=== PATIENT | female | born 1950 | race Caucasian/White ===

== ENCOUNTER → 2016-12-19 | Outpatient (REF) | payer MEDICARE, OTHER ==
[~2016-12-19] MED LIST: /ESCI10TA OR; AMBI10TA OR; ASPI81TA83 OR; ASTELIN; CA ZINC PO; CARV6.25 OR; LACOSAMIDE PO; NORV5TAB OR; PLAV75TA2 OR; RESTASIS OU; THERGRAN PO; VITAMIN D PO; ZANT150T OR; ZOCO40TA OR; [UNRECOGNIZED DRUG - OTHER] PV
[2016-12-19 13:49] LABS: BASO % 0.6 % (0.0-1.0); EOS # 0.1 K/mm3 (0.0-0.50); EOS % 1.1 % (0.0-3.0); LARGE UNSTAINED CELL # 0.2 K/mm3 (0.0-0.4); LARGE UNSTAINED CELL % 2.2 % (0.0-4.0); LYMPH # 2.3 K/mm3 (1.5-4.5); LYMPH % 31.1 % (24.0-44.0); MEAN CORPUSCULAR HEMOGLOBIN 33.5 pg (27.0-33.0); MEAN CORPUSCULAR HGB CONC 33.1 g/dl (32.0-36.5); MEAN CORPUSCULAR VOLUME 101.4 fl (80.0-96.0); MONO # 0.4 K/mm3 (0.0-0.8); MONO % 6.3 % (0.0-5.0); NEUTROPHILS % 58.7 % (36.0-66.0); PLATELET COUNT, AUTOMATED 225 k/mm3 (150-450); WHITE BLOOD COUNT 6.9 K/mm3 (4.0-10.0)
[2016-12-19 14:11] LABS: ALBUMIN 3.6 GM/DL (3.2-5.2); ALBUMIN/GLOBULIN RATIO 1.16 (1.00-1.93); ALKALINE PHOSPHATASE 87 U/L (45-117); ALT/SGPT 20 U/L (12-78); ANION GAP 9 MEQ/L (8-16); AST/SGOT 16 U/L (15-37); BILIRUBIN,TOTAL 0.3 MG/DL (0.2-1.0); BLOOD UREA NITROGEN 17 MG/DL (7-18); CALCIUM LEVEL 9.1 MG/DL (8.8-10.2); CARBON DIOXIDE LEVEL 30 MEQ/L (21-32); CHLORIDE LEVEL 103 MEQ/L (98-107); CREATININE FOR GFR 0.73 MG/DL (0.55-1.02); GLOMERULAR FILTRATION RATE > 60.0 (>45); GLUCOSE, FASTING 74 MG/DL (80-110); POTASSIUM SERUM 3.9 MEQ/L (3.5-5.1); SODIUM LEVEL 142 MEQ/L (136-145); TOTAL PROTEIN 6.7 GM/DL (6.4-8.2)
== END ==
LOC: M LABNEURO 13:19
PROVIDERS: ATTEND Psychiatry & Neurology Neurology
DX: F01.50 Vascular dementia, unspecified severity, without behavioral disturbance, psychotic disturbance, mood disturbance, and anxiety (principal); G40.209 Localization-related (focal) (partial) symptomatic epilepsy and epileptic syndromes with complex partial seizures, not intractable, without status epilepticus

== ENCOUNTER 2017-01-09 13:32 | Emergency (ER) | payer MEDICARE, OTHER ==
[~2017-01-09] VITALS: Ht 157.5 cm; Wt 59.0 kg
[2017-01-09] MEDS ORDERED: TYLE325C PO (13:45)
[2017-01-09] MEDS ORDERED: ATOR1TAB21 PO (13:45)
[2017-01-09] MEDS ORDERED: FISH100049 PO (13:45)
[2017-01-09] MEDS ORDERED: COUM1TAB17 PO (13:45)
[2017-01-09] MEDS ORDERED: RETA0.5E OU (13:45)
[2017-01-09] MEDS ORDERED: BIOT50004 PO (13:45)
[2017-01-09] MEDS ORDERED: NAME5TAB13 PO (13:45)
[2017-01-09] MEDS ORDERED: CALC600T21 PO (13:45)
[2017-01-09] MEDS ORDERED: LAMO100T PO (13:45)
[2017-01-09 15:29] LABS: BASO % 0.4 % (0.0-1.0); EOS # 0.1 K/mm3 (0.0-0.50); EOS % 1.1 % (0.0-3.0); LARGE UNSTAINED CELL # 0.1 K/mm3 (0.0-0.4); LARGE UNSTAINED CELL % 1.7 % (0.0-4.0); LYMPH # 1.9 K/mm3 (1.5-4.5); LYMPH % 22.9 % (24.0-44.0); MEAN CORPUSCULAR HEMOGLOBIN 34.2 pg (27.0-33.0); MEAN CORPUSCULAR VOLUME 100.5 fl (80.0-96.0); MONO # 0.7 K/mm3 (0.0-0.8); MONO % 8.9 % (0.0-5.0); NEUTROPHILS # 5.1 K/mm3 (1.8-7.7); NEUTROPHILS % 65.1 % (36.0-66.0); PLATELET COUNT, AUTOMATED 194 k/mm3 (150-450); RED CELL DISTRIBUTION WIDTH 12.7 % (11.5-14.5); WHITE BLOOD COUNT 7.8 K/mm3 (4.0-10.0)
[2017-01-09 15:40] LABS: INR 2.18
[2017-01-09 15:52] LABS: ANION GAP 7 MEQ/L (8-16); BLOOD UREA NITROGEN 20 MG/DL (7-18); CARBON DIOXIDE LEVEL 31 MEQ/L (21-32); CHLORIDE LEVEL 101 MEQ/L (98-107); CREATININE FOR GFR 0.72 MG/DL (0.55-1.02); GLOMERULAR FILTRATION RATE > 60.0 (>45); GLUCOSE, FASTING 108 MG/DL (80-110); POTASSIUM SERUM 3.4 MEQ/L (3.5-5.1); SODIUM LEVEL 139 MEQ/L (136-145)
--- NOTE | 2017-01-09 15:52 | REP ---
Left knee series: Five views. History: Left knee effusion. Findings: Five views of the left knee demonstrate moderate diffuse osteopenia. There is fullness in the suprapatellar bursa suggestive of a joint effusion. Chondrocalcinosis is noted medially and laterally. Some vascular calcification is seen. No fracture is seen. Early medial compartment spurring is noted. Impression: Chondrocalcinosis and medial compartment spurring. Probable joint effusion. No acute bony abnormality. Signed by Anthony Toth MD 01/09/2017 03:55 P
[2017-01-09 15:57] LABS: ERYTHROCYTE SEDIMENTATION RATE 66 mm/hr (0-30)
[2017-01-09 16:19] LABS: URIC ACID 4.4 MG/DL (2.6-6.0)
[2017-01-09] MEDS ORDERED: PRED20TA PO (16:29)
[2017-01-09 16:32] VITALS: BP 132/72
[2017-01-12 00:07] LABS: Lyme Disease IgG/IgM Antibodie <0.91 ISR (0.00-0.90); Lyme Disease IgM Ab Quantitati <0.80 index (0.00-0.79)
== END 2017-01-09 16:36 | disposition home or self-care (01) ==
LOC: M ED 14:47
DX: M25.462 Effusion, left knee (principal); M11.262 Other chondrocalcinosis, left knee; M17.12 Unilateral primary osteoarthritis, left knee; Z79.899 Other long term (current) drug therapy; Z88.1 Allergy status to other antibiotic agents

== ENCOUNTER → 2017-02-13 | Outpatient (CLI) | payer MEDICARE, OTHER ==
[~2017-02-13] MED LIST changes: +ATOR1TAB21 PO; +BIOT50004 PO; +CALC600T21 PO; +COUM1TAB17 PO; +FISH100049 PO; +LAMO100T PO; +NAME5TAB13 PO; +PRED20TA PO; +RETA0.5E OU; +TYLE325C PO
--- NOTE | 2017-02-13 13:52 | REP ---
REASON: Pain. No trauma. No priors. Degenerative change is seen throughout the wrist. Bones are demineralized. Calcifications are seen in the region of the triangular fibrocartilage complex. There is no evidence of an acute fracture. IMPRESSION: Chronic changes. Signed by Nadir Newell DO 02/13/2017 03:33 P
== END ==
LOC: M WUC 11:20
PROVIDERS: ATTEND Physician Assistant
DX: M19.031 Primary osteoarthritis, right wrist (principal)

== ENCOUNTER → 2017-02-15 | Outpatient (REF) | payer MEDICARE, OTHER | LOC: M LAB REF 17:14 | PROVIDERS: ATTEND Nurse Practitioner Adult Health | DX: R21 Rash and other nonspecific skin eruption (principal) ==

== ENCOUNTER 2017-03-09 17:55 | Emergency (ER) | payer MEDICARE, OTHER ==
[~2017-03-09] VITALS: Ht 160 cm; Wt 57.7 kg
[2017-03-09 17:55] VITALS: BP 156/93
[~2017-03-09 17:55] MED LIST changes: -CALC600T21 PO; +CALC600T60 PO
[2017-03-09] MEDS ORDERED: BIMA01SOL (18:08)
[2017-03-09] MEDS ORDERED: RETA0.5S (18:08)
[2017-03-09] MEDS ORDERED: ACETAMINOPHEN TAB 650MG DOSE (2X325MG) PO ONE (18:15)
--- NOTE | 2017-03-10 08:48 | REP ---
RIGHT WRIST, FOUR VIEWS: HISTORY: Pain. There is no acute fracture or dislocation. The joint spaces are normal in appearance. The bony structure is osteopenic. IMPRESSION: There is no acute fracture or dislocation. Signed by Dylan Stuart MD 03/10/2017 09:04 A
[2017-04-17] MEDS ORDERED: COLC1TAB13 PO (14:15)
== END 2017-03-09 19:00 | disposition home or self-care (01) ==
LOC: M ED 17:55
DX: S63.521A Sprain of radiocarpal joint of right wrist, initial encounter (principal); S60.221A Contusion of right hand, initial encounter; S60.211A Contusion of right wrist, initial encounter; W10.9XXA Fall (on) (from) unspecified stairs and steps, initial encounter; Y92.019 Unspecified place in single-family (private) house as the place of occurrence of the external cause; Y93.01 Activity, walking, marching and hiking; Y99.8 Other external cause status; I10 Essential (primary) hypertension; G43.909 Migraine, unspecified, not intractable, without status migrainosus; E78.00 Pure hypercholesterolemia, unspecified; D68.59 Other primary thrombophilia; Z90.79 Acquired absence of other genital organ(s); Z86.79 Personal history of other diseases of the circulatory system; Z88.1 Allergy status to other antibiotic agents; Z79.899 Other long term (current) drug therapy

== ENCOUNTER 2017-04-24 11:04 | Outpatient (CLI) | payer MEDICARE, OTHER ==
[~2017-04-24] VITALS: Ht 160 cm; Wt 57.6 kg
[~2017-04-24 11:04] MED LIST changes: +BIMA01SOL; +COLC1TAB13 PO; +NS 1,000 ML IV ONE; +RETA0.5S
[2017-04-24] MEDS ORDERED: LIDOCAINE 2% INJ 100 MG/5 ML SDV (FOR ANES.) As Ordered ONE (12:12)
[2017-04-24] MEDS ORDERED: PROPOFOL 500 MG/50 ML VIAL As Ordered ONE (12:12)
--- NOTE | 2017-04-24 12:27 | ROOR ---
Patient Name: Irene Sherwood Procedure Date: 04/24/2017 12:03 PM Date of : 1950 Age: 67 Room: [facility] Gender: Female Note Status: Finalized Procedure: Total Colonoscopy to Cecum Indications: Screening for colorectal malignant neoplasm, Incidental - Gastrointestinal occult blood loss Providers: Tom Gonzalez MD Referring MD: Rachel Elaine NP Requesting Provider: Medicines: Monitored Anesthesia Care Complications: No immediate complications. Procedure: Pre-Anesthesia Assessment: - The heart rate, respiratory rate, oxygen saturations, blood pressure, adequacy of pulmonary ventilation, and response to care were monitored throughout the procedure. The Colonoscope was introduced through the anus and advanced to the cecum, identified by appendiceal orifice and ileocecal valve. The colonoscopy was performed without difficulty. The patient tolerated the procedure well. The quality of the bowel preparation was excellent. Findings: The perianal and digital rectal examinations were normal. Non-bleeding internal hemorrhoids were found during retroflexion. The hemorrhoids were small and Grade I (internal hemorrhoids that do not prolapse). No other significant abnormalities were identified in a careful examination of the remainder of the colon. The exam was otherwise without abnormality on direct and retroflexion views. Impression: - Non-bleeding internal hemorrhoids. - The examination was otherwise normal on direct and retroflexion views. - No specimens collected. - The exam was otherwise normal to the cecum. Recommendation: - Patient has a contact number available for emergencies. The signs and symptoms of potential delayed complications were discussed with the patient. Return to normal activities tomorrow. Written discharge instructions were provided to the patient. - High fiber diet. - Discharge patient to home. - Repeat colonoscopy in 10 years for screening purposes. - Return to referring physician. - The findings and recommendations were discussed with the patient's family. Tom Gonzalez MD Tom Gonzalez MD 04/24/2017 12:27:19 PM This report has been signed electronically. Number of Addenda: 0 Note Initiated On: 04/24/2017 12:03 PM Estimated Blood Loss: Estimated blood loss: none.
[2017-04-24 12:50] VITALS: BP 140/80
== END 2017-04-24 13:02 | disposition home or self-care (01) ==
LOC: M OPP 11:04
PROVIDERS: ATTEND Internal Medicine Gastroenterology
DX: Z12.11 Encounter for screening for malignant neoplasm of colon (principal); K64.0 First degree hemorrhoids; R19.5 Other fecal abnormalities; I63.9 Cerebral infarction, unspecified; R51 Headache; Z86.69 Personal history of other diseases of the nervous system and sense organs; Z86.73 Personal history of transient ischemic attack (TIA), and cerebral infarction without residual deficits; R41.3 Other amnesia; Z88.1 Allergy status to other antibiotic agents; Z79.899 Other long term (current) drug therapy; Z87.891 Personal history of nicotine dependence; Z79.01 Long term (current) use of anticoagulants

== ENCOUNTER → 2017-12-16 | Outpatient (CLI) | payer MEDICARE, OTHER | LOC: M WHC 08:31 | DX: Z12.31 Encounter for screening mammogram for malignant neoplasm of breast (principal); Z78.0 Asymptomatic menopausal state | CPT/HCPCS: 77067 ==

== ENCOUNTER → 2019-02-03 | Outpatient (REF) | payer MEDICARE, OTHER ==
[~2019-02-03] MED LIST changes: -/ESCI10TA OR; +LEXA1TAB OR; -NS 1,000 ML IV ONE
[2019-02-05 18:36] LABS: AMYLASE 44 U/L (25-115); LIPASE 112 U/L (73-393)
== END ==
LOC: M LAB REF 17:24
PROVIDERS: ATTEND Nurse Practitioner Adult Health
DX: R10.9 Unspecified abdominal pain (principal); R63.4 Abnormal weight loss

== ENCOUNTER → 2019-02-04 | Outpatient (CLI) | payer MEDICARE, OTHER ==
--- NOTE | 2019-02-04 15:05 | REPMRS ---
Patient History The patient states she has not had a clinical breast exam in over a year. Patient is postmenopausal. No known family history of cancer. No Hormone Replacement Therapy Digital Woman Screen Mammo: February 04, 2019 - Exam #: [id number] Bilateral CC and MLO view(s) were taken. Technologist: Sandra Escamilla, Technologist Prior study comparison: December 16, 2017, digital woman screen mammo performed at [facility]. July 17, 2016, digital woman screen mammo performed at [facility]. July 14, 2015, digital woman screen mammo performed at [facility]. FINDINGS: There are scattered fibroglandular densities. There has been no change in the appearance of the mammogram from the prior studies. There is a mild amount of scattered fibroglandular density which is fairly symmetric. There is no interval development of dominant mass, architectural distortion, or clustered microcalcification suggestive of malignancy. 3-D tomosynthesis shows no additional findings. Assessment: BI-RADS/ACR category 1 mammogram. Negative Mammogram. Recommendation Routine screening mammogram of both breasts in 1 year (for women over age 40). This patient's Lifetime Breast Cancer RIsk is estimated at 4.4 %. This mammogram was interpreted with the aid of an FDA-approved computer-aided dectection system. Electronically Signed By: Addison Toth MD 02/04/19 [id number]
== END ==
LOC: M WHC 09:32
PROVIDERS: ATTEND Obstetrics & Gynecology
DX: Z12.31 Encounter for screening mammogram for malignant neoplasm of breast (principal); Z78.0 Asymptomatic menopausal state

== ENCOUNTER → 2021-01-03 | Outpatient (REF) | payer MEDICARE, OTHER ==
[~2021-01-03] MED LIST changes: +COLC0.6T47 PO; -COLC1TAB13 PO; -LAMO100T PO; +LAMO100T3 PO
[2021-01-03 13:24] LABS: FOLATE > 24.0 NG/ML; VITAMIN B12 LEVEL 754 PG/ML
== END ==
LOC: M LAB REF 12:09
PROVIDERS: ATTEND Nurse Practitioner Adult Health
DX: I69.311 Memory deficit following cerebral infarction (principal); D51.9 Vitamin B12 deficiency anemia, unspecified; G40.89 Other seizures

== ENCOUNTER → 2021-03-17 | Outpatient (CLI) | payer MEDICARE, OTHER ==
[2021-03-17 11:35] LABS: BASO # 0.1 10^3/uL (0.0-0.2); BASO % 1.3 % (0.0-1.0); EOS % 0.7 % (0.0-3.0); HEMATOCRIT 34.6 % (36.0-47.0); HEMOGLOBIN 10.9 g/dl (12.0-15.5); LYMPH # 1.5 10^3/uL (1.5-5.0); LYMPH % 26.9 % (24.0-44.0); MEAN CORPUSCULAR HGB CONC 31.5 g/dl (32.0-36.5); MEAN CORPUSCULAR VOLUME 98.3 fl (80.0-96.0); MONO # 0.9 10^3/uL (0.0-0.8); NEUTROPHILS % 54.9 % (36.0-66.0); PLATELET COUNT, AUTOMATED 192 10^3/uL (150-450); RED BLOOD COUNT 3.52 10^6/uL (4.00-5.40); WHITE BLOOD COUNT 5.4 10^3/uL (4.0-10.0)
[2021-03-17 11:52] LABS: ERYTHROCYTE SEDIMENTATION RATE 60 mm/hr (0-30)
[2021-03-17 11:56] LABS: ALT/SGPT 21 U/L (12-78); BLOOD UREA NITROGEN 21 MG/DL (7-18); C REACTIVE PROTEIN QUANTITATIV 1.73 MG/DL (0.00-0.30); CREATININE FOR GFR 0.79 MG/DL (0.55-1.30); GLOMERULAR FILTRATION RATE > 60.0 (>39)
== END ==
LOC: M LAB 10:59
PROVIDERS: ATTEND Physician Assistant Medical
DX: M06.09 Rheumatoid arthritis without rheumatoid factor, multiple sites (principal)

== ENCOUNTER → 2021-05-10 | Outpatient (REF) | payer MEDICARE, OTHER | LOC: M LAB REF 18:11 | PROVIDERS: ATTEND Nurse Practitioner Adult Health | DX: D50.9 Iron deficiency anemia, unspecified (principal) ==

== ENCOUNTER → 2022-02-19 | Outpatient (CLI) | payer MEDICARE, OTHER ==
[~2022-02-19] MED LIST changes: +BARIUM SULFATE 700 MG TABLET (E-Z-DISK) As Ordered ONE; +E-Z-PAQUE 96% w/w SUSP 176GM BTL As Ordered ONE; +VARIBAR NECTAR 40% w/v 240ML SUSP BTL As Ordered ONE; +VARIBAR PUDDING 40% w/v 230ML TUBE As Ordered ONE
== END ==
LOC: M RAD 11:16
PROVIDERS: ATTEND Nurse Practitioner Adult Health
DX: I69.391 Dysphagia following cerebral infarction (principal)

== ENCOUNTER 2022-03-12 11:53 | Emergency (ER) | payer MEDICARE, OTHER ==
[~2022-03-12] VITALS: Ht 157.5 cm; Wt 41.9 kg
[~2022-03-12 11:53] MED LIST changes: -BARIUM SULFATE 700 MG TABLET (E-Z-DISK) As Ordered ONE; -E-Z-PAQUE 96% w/w SUSP 176GM BTL As Ordered ONE; -VARIBAR NECTAR 40% w/v 240ML SUSP BTL As Ordered ONE; -VARIBAR PUDDING 40% w/v 230ML TUBE As Ordered ONE
[2022-03-12] MEDS ORDERED: ELIQ5TAB PO (12:03)
[2022-03-12 15:23] VITALS: BP 128/96
== END 2022-03-12 15:26 | disposition home or self-care (01) ==
LOC: M ED 11:53
DX: S90.212A Contusion of left great toe with damage to nail, initial encounter (principal); W19.XXXA Unspecified fall, initial encounter; I10 Essential (primary) hypertension; G43.909 Migraine, unspecified, not intractable, without status migrainosus; K21.9 Gastro-esophageal reflux disease without esophagitis; M54.9 Dorsalgia, unspecified; D68.2 Hereditary deficiency of other clotting factors; F32.A Depression, unspecified; F41.9 Anxiety disorder, unspecified; Z88.1 Allergy status to other antibiotic agents; Z79.01 Long term (current) use of anticoagulants; Z79.899 Other long term (current) drug therapy

== ENCOUNTER 2022-03-20 14:46 | Inpatient (IN) | payer MEDICARE, OTHER ==
[~2022-03-20] VITALS: Ht 154.9 cm; Wt 37.6 kg
[~2022-03-20 14:46] MED LIST changes: -BIMA01SOL; +BIMA01SOL OP; +ELIQ5TAB PO
[2022-03-20 18:27] LABS: BASO # 0.1 10^3/uL (0.0-0.2); BASO % 0.7 % (0.0-1.0); EOS % 0.3 % (0.0-3.0); HEMATOCRIT 29.8 % (36.0-47.0); HEMOGLOBIN 8.7 g/dl (12.0-15.5); LYMPH # 0.9 10^3/uL (1.5-5.0); LYMPH % 8.7 % (24.0-44.0); MEAN CORPUSCULAR HEMOGLOBIN 28.2 pg (27.0-33.0); MEAN CORPUSCULAR HGB CONC 29.2 g/dl (32.0-36.5); MEAN CORPUSCULAR VOLUME 96.8 fl (80.0-96.0); MONO # 0.7 10^3/uL (0.0-0.8); MONO % 7.1 % (2.0-8.0); NEUTROPHILS # 8.1 10^3/uL (1.5-8.5); NEUTROPHILS % 82.6 % (36.0-66.0); PLATELET COUNT, AUTOMATED 238 10^3/uL (150-450); RED BLOOD COUNT 3.08 10^6/uL (4.00-5.40); WHITE BLOOD COUNT 9.8 10^3/uL (4.0-10.0)
[2022-03-20 19:07] LABS: BLOOD UREA NITROGEN 39 MG/DL (7-18); CALCIUM LEVEL 9.3 MG/DL (8.8-10.2); CARBON DIOXIDE LEVEL 24 MEQ/L (21-32); CHLORIDE LEVEL 120 MEQ/L (98-107); CREATININE FOR GFR 0.82 MG/DL (0.55-1.30); GLOMERULAR FILTRATION RATE > 60.0 (>39); GLUCOSE, FASTING 113 MG/DL (70-100); POTASSIUM SERUM 3.9 MEQ/L (3.5-5.1); SODIUM LEVEL 151 MEQ/L (136-145)
[2022-03-20] MEDS ORDERED: HYDR200T3 PO (19:32)
[2022-03-20] MEDS ORDERED: ECOT81TA5 PO (19:32)
[2022-03-20] MEDS ORDERED: LEXA1TAB PO (19:32)
[2022-03-20] MEDS ORDERED: TRAZ-257 PO (19:32)
[2022-03-20] MEDS ORDERED: B-12100021 PO (19:32)
[2022-03-20] MEDS ORDERED: THERTAB52 PO (19:32)
[2022-03-20] MEDS ORDERED: LEFL1TAB4 PO (19:32)
[2022-03-20] MEDS ORDERED: PANT40TA29 PO (19:32)
[2022-03-20] MEDS ORDERED: MEMA10TA19 PO (19:32)
[2022-03-20] MEDS ORDERED: PERI12LIQ SSP (19:50)
[2022-03-20] MEDS ORDERED: FEOS200T2 PO (19:53)
[2022-03-20] MEDS ORDERED: ACET-897 PO (19:53)
[2022-03-20 19:55] LABS: RSV AMPLIFICATION NEGATIVE (NEGATIVE)
[2022-03-20] MEDS ORDERED: GLUC1TAB58 PO (20:11)
[2022-03-20] MEDS ORDERED: HOME MED LIST COMPLETE! XX SCH (20:15)
[2022-03-20] MEDS ORDERED: MORPHINE 10 MG/ML 1ML VIAL IM ONE (21:40)
[2022-03-20] MEDS ORDERED: LABETALOL 100MG/20ML VIAL IV STA (21:41)
[2022-03-20] MEDS ORDERED: MORPHINE 4 MG/ML 1ML VIAL/SYRINGE IV ONE (22:00)
[2022-03-20] MEDS ORDERED: ACETAMINOPHEN TAB 650MG DOSE (2X325MG) PO PRN (22:25)
[2022-03-20] MEDS ORDERED: NS 1,000 ML IV SCH (22:25)
[2022-03-20] MEDS ORDERED: MOM 30ML SUSPENSION UDC PO PRN (22:25)
[2022-03-20] MEDS ORDERED: MAALOX 30 ML SUSP *UDC PO PRN (22:25)
[2022-03-20 22:35] LABS: NT-PRO BNP 388 PG/ML (<125)
[2022-03-20] MEDS: D5W 1,000 ML IV SCH (23:00)
[2022-03-20] MEDS ORDERED: PILL CUTTER 1 EACH XX PRN (23:25)
[2022-03-21 01:50] LABS: INR 1.41; PROTHROMBIN TIME 17.7 SECONDS (12.7-14.5)
[2022-03-21 01:57] LABS: CK-MB VALUE MASS 2.5 NG/ML (<3.6); MB/CK RELATIVE INDEX 1.81 (< OR =4)
[2022-03-21] MEDS: LATANOPROST 0.005% OPHTH SOLN 2.5 ML OU SCH ×2 (02:30→21:48)
[2022-03-21] MEDS: MEMANTINE 5MG TABLET (NAMENDA) PO SCH ×3 (02:30→21:00)
[2022-03-21] MEDS: UNRESOLVED PATIENT OWN MED ORDER XX SCH (02:30)
[2022-03-21] MEDS: traZODone 100 MG TAB PO SCH ×2 (02:35→21:00)
[2022-03-21] MEDS: lamoTRIgine 100MG TAB PO SCH ×3 (02:36→21:00)
[2022-03-21] MEDS: ATORVASTATIN 20 MG TAB PO SCH ×2 (02:36→21:00)
[2022-03-21 06:39] LABS: BASO # 0.1 10^3/uL (0.0-0.2); BASO % 0.7 % (0.0-1.0); EOS % 0.6 % (0.0-3.0); HEMATOCRIT 29.3 % (36.0-47.0); HEMOGLOBIN 8.6 g/dl (12.0-15.5); LYMPH % 14.2 % (24.0-44.0); MEAN CORPUSCULAR HEMOGLOBIN 29.1 pg (27.0-33.0); MEAN CORPUSCULAR HGB CONC 29.4 g/dl (32.0-36.5); MONO # 0.6 10^3/uL (0.0-0.8); MONO % 8.1 % (2.0-8.0); NEUTROPHILS # 5.2 10^3/uL (1.5-8.5); NEUTROPHILS % 75.7 % (36.0-66.0); PLATELET COUNT, AUTOMATED 193 10^3/uL (150-450); RED BLOOD COUNT 2.96 10^6/uL (4.00-5.40); WHITE BLOOD COUNT 6.9 10^3/uL (4.0-10.0)
[2022-03-21 07:17] LABS: ALBUMIN 2.1 GM/DL (3.2-5.2); ALT/SGPT 30 U/L (12-78); BILIRUBIN,TOTAL 0.4 MG/DL (0.2-1.0); BLOOD UREA NITROGEN 29 MG/DL (7-18); CALCIUM LEVEL 8.9 MG/DL (8.8-10.2); CARBON DIOXIDE LEVEL 28 MEQ/L (21-32); CHLORIDE LEVEL 119 MEQ/L (98-107); CREATININE FOR GFR 0.72 MG/DL (0.55-1.30); GLOMERULAR FILTRATION RATE > 60.0 (>39); GLUCOSE, FASTING 131 MG/DL (70-100); POTASSIUM SERUM 3.8 MEQ/L (3.5-5.1); SODIUM LEVEL 150 MEQ/L (136-145); TOTAL PROTEIN 5.1 GM/DL (6.4-8.2)
[2022-03-21] MEDS ORDERED: amLODIPine 5 MG TAB PO SCH (09:00)
[2022-03-21] MEDS: HYDROXYCHLOROQUINE 200 MG TAB PO SCH (09:00)
[2022-03-21] MEDS: PANTOPRAZOLE 40MG TAB (PROTONIX) PO SCH (09:00)
[2022-03-21] MEDS: LABETALOL 200 MG TAB PO SCH (09:00)
[2022-03-21] MEDS: HEPARIN SOD (PORCINE) 5000UNITS/ML 1ML VIAL/SYRINGE SQ SCH ×2 (09:43→21:00)
[2022-03-21 13:28] LABS: BLOOD UREA NITROGEN 25 MG/DL (7-18); CALCIUM LEVEL 8.7 MG/DL (8.8-10.2); CARBON DIOXIDE LEVEL 28 MEQ/L (21-32); CHLORIDE LEVEL 117 MEQ/L (98-107); CREATININE FOR GFR 0.64 MG/DL (0.55-1.30); GLOMERULAR FILTRATION RATE > 60.0 (>39); GLUCOSE, FASTING 133 MG/DL (70-100); POTASSIUM SERUM 3.6 MEQ/L (3.5-5.1); SODIUM LEVEL 148 MEQ/L (136-145)
[2022-03-21] MEDS: MORPHINE 2 MG/ML 1ML VIAL IV PRN (15:12)
[2022-03-21 16:41] LABS: BLOOD UREA NITROGEN 22 MG/DL (7-18); CARBON DIOXIDE LEVEL 27 MEQ/L (21-32); CHLORIDE LEVEL 117 MEQ/L (98-107); CREATININE FOR GFR 0.63 MG/DL (0.55-1.30); FERRITIN 796 NG/ML (8-252); GLOMERULAR FILTRATION RATE > 60.0 (>39); GLUCOSE, FASTING 136 MG/DL (70-100); IRON (FE) 16 UG/DL (50-170); PERCENT SATURATION 8.4 % (13.2-45.0); POTASSIUM SERUM 4.1 MEQ/L (3.5-5.1); SODIUM LEVEL 149 MEQ/L (136-145); TOTAL IRON BINDING CAPACITY 190 UG/DL (250-450)
[2022-03-21 17:06] VITALS: BP 134/92
[2022-03-21 17:11] LABS: FOLATE > 24.0 NG/ML; VITAMIN B12 LEVEL > 2000 PG/ML
[2022-03-21] MEDS: D5W 1,000 ML IV SCH (17:16)
[2022-03-21] MEDS: ESCITALOPRAM OXALATE 10 MG TAB (LEXAPRO) PO SCH (18:00)
[2022-03-21] MEDS ORDERED: MORPHINE 4 MG/ML 1ML VIAL/SYRINGE IV PRN (18:30)
[2022-03-21 20:00] VITALS: BP 147/86
[2022-03-22] VITALS: BP 128/70
[2022-03-22] MEDS: UNRESOLVED PATIENT OWN MED ORDER XX SCH (00:01)
[2022-03-22 04:00] VITALS: BP 136/88
[2022-03-22] MEDS: D5W 1,000 ML IV SCH (04:11)
[2022-03-22 06:25] LABS: HEMATOCRIT 29.4 % (36.0-47.0); HEMOGLOBIN 8.7 g/dl (12.0-15.5); MEAN CORPUSCULAR HEMOGLOBIN 29.1 pg (27.0-33.0); MEAN CORPUSCULAR HGB CONC 29.6 g/dl (32.0-36.5); MEAN CORPUSCULAR VOLUME 98.3 fl (80.0-96.0); PLATELET COUNT, AUTOMATED 215 10^3/uL (150-450); RED BLOOD COUNT 2.99 10^6/uL (4.00-5.40); WHITE BLOOD COUNT 8.2 10^3/uL (4.0-10.0)
[2022-03-22 06:52] LABS: BLOOD UREA NITROGEN 15 MG/DL (7-18); CARBON DIOXIDE LEVEL 27 MEQ/L (21-32); CHLORIDE LEVEL 110 MEQ/L (98-107); CREATININE FOR GFR 0.62 MG/DL (0.55-1.30); GLOMERULAR FILTRATION RATE > 60.0 (>39); GLUCOSE, FASTING 115 MG/DL (70-100); POTASSIUM SERUM 3.6 MEQ/L (3.5-5.1); SODIUM LEVEL 142 MEQ/L (136-145)
[2022-03-22 06:53] LABS: ALBUMIN 1.9 GM/DL (3.2-5.2); ALT/SGPT 31 U/L (12-78); BILIRUBIN,TOTAL 0.5 MG/DL (0.2-1.0); TOTAL PROTEIN 5.8 GM/DL (6.4-8.2)
[2022-03-22] MEDS: LR 1,000 ML IV SCH ×2 (08:27→22:26)
[2022-03-22] MEDS: FERROUS SULFATE 325MG TAB PO SCH ×2 (08:28→12:30)
[2022-03-22] MEDS: MEMANTINE 5MG TABLET (NAMENDA) PO SCH ×3 (08:28→20:21)
[2022-03-22] MEDS: lamoTRIgine 100MG TAB PO SCH ×3 (08:28→20:19)
[2022-03-22] MEDS: LABETALOL 200 MG TAB PO SCH ×2 (08:28→12:30)
[2022-03-22] MEDS: HYDROXYCHLOROQUINE 200 MG TAB PO SCH ×2 (08:29→12:31)
[2022-03-22] MEDS: PANTOPRAZOLE 40MG TAB (PROTONIX) PO SCH ×3 (08:29→13:16)
[2022-03-22] MEDS: HEPARIN SOD (PORCINE) 5000UNITS/ML 1ML VIAL/SYRINGE SQ SCH (08:32)
[2022-03-22 08:54] VITALS: BP 151/85
[2022-03-22] MEDS: APIXABAN 5 MG TAB (ELIQUIS) PO SCH ×2 (12:29→20:19)
[2022-03-22] MEDS: cefTRIAXone SOD 1 GM in D5W MINI-BAG PLUS 50 ML IV SCH (12:46)
[2022-03-22] MEDS: MORPHINE 2 MG/ML 1ML VIAL IV PRN ×3 (12:53→22:22)
[2022-03-22] MEDS ORDERED: HYDR-3713 PO (17:45)
[2022-03-22] MEDS ORDERED: MIRA3350 PO (17:48)
[2022-03-22] MEDS: ESCITALOPRAM OXALATE 10 MG TAB (LEXAPRO) PO SCH (18:06)
[2022-03-22] MEDS ORDERED: ACET-683 PO (18:13)
[2022-03-22] MEDS: ASPIRIN 81MG ENTERIC TABLET PO SCH (20:21)
[2022-03-22] MEDS: ATORVASTATIN 20 MG TAB PO SCH (20:21)
[2022-03-22] MEDS: traZODone 100 MG TAB PO SCH (20:22)
[2022-03-22] MEDS: LATANOPROST 0.005% OPHTH SOLN 2.5 ML OU SCH (20:22)
[2022-03-22 22:00] VITALS: BP 117/70
[2022-03-23] MEDS: MORPHINE 2 MG/ML 1ML VIAL IV PRN (02:54)
[2022-03-23 05:56] LABS: HEMATOCRIT 25.7 % (36.0-47.0); HEMOGLOBIN 7.6 g/dl (12.0-15.5); MEAN CORPUSCULAR HEMOGLOBIN 28.7 pg (27.0-33.0); MEAN CORPUSCULAR HGB CONC 29.6 g/dl (32.0-36.5); PLATELET COUNT, AUTOMATED 180 10^3/uL (150-450); RED BLOOD COUNT 2.65 10^6/uL (4.00-5.40); WHITE BLOOD COUNT 6.2 10^3/uL (4.0-10.0)
[2022-03-23 06:00] VITALS: BP 115/73
[2022-03-23 06:28] LABS: ALBUMIN 1.7 GM/DL (3.2-5.2); ALT/SGPT 26 U/L (12-78); BILIRUBIN,TOTAL 0.3 MG/DL (0.2-1.0); BLOOD UREA NITROGEN 19 MG/DL (7-18); CALCIUM LEVEL 8.2 MG/DL (8.8-10.2); CARBON DIOXIDE LEVEL 25 MEQ/L (21-32); CHLORIDE LEVEL 113 MEQ/L (98-107); CREATININE FOR GFR 0.64 MG/DL (0.55-1.30); GLOMERULAR FILTRATION RATE > 60.0 (>39); GLUCOSE, FASTING 107 MG/DL (70-100); POTASSIUM SERUM 3.5 MEQ/L (3.5-5.1); SODIUM LEVEL 144 MEQ/L (136-145); TOTAL PROTEIN 4.4 GM/DL (6.4-8.2)
[2022-03-23] MEDS ORDERED: NORCO, ANEXSIA 5/325MG TABLET (HYDROcodone/ACETAMINOPHEN) PO PRN (07:15)
[2022-03-23] MEDS ORDERED: MIRALAX *UNIT DOSE* 17GM PACKET PO PRN (07:15)
[2022-03-23] MEDS: lamoTRIgine 100MG TAB PO SCH ×2 (08:27→20:26)
[2022-03-23] MEDS: HYDROXYCHLOROQUINE 200 MG TAB PO SCH (08:27)
[2022-03-23] MEDS: ACETAMINOPHEN 500 MG TAB PO SCH ×5 (08:27→23:07)
[2022-03-23] MEDS: MEMANTINE 5MG TABLET (NAMENDA) PO SCH ×2 (08:28→20:26)
[2022-03-23] MEDS: APIXABAN 5 MG TAB (ELIQUIS) PO SCH ×2 (08:31→20:26)
[2022-03-23] MEDS: PANTOPRAZOLE 40MG TAB (PROTONIX) PO SCH (08:32)
[2022-03-23] MEDS: LR 1,000 ML IV SCH (08:32)
[2022-03-23] MEDS: DOCUSATE SODIUM 100MG CAPSULE PO SCH ×2 (08:32→20:26)
[2022-03-23] MEDS: LABETALOL 200 MG TAB PO SCH (09:00)
[2022-03-23] MEDS: UNRESOLVED PATIENT OWN MED ORDER XX SCH (09:20)
[2022-03-23] MEDS: NORCO, ANEXSIA 5/325MG TABLET (HYDROcodone/ACETAMINOPHEN) PO PRN ×2 (11:35→20:27)
[2022-03-23] MEDS: cefTRIAXone SOD 1 GM in D5W MINI-BAG PLUS 50 ML IV SCH (12:18)
[2022-03-23 14:00] VITALS: BP 136/80
[2022-03-23] MEDS: IRON SUCROSE 200 MG in NS 100 ML IV SCH (17:05)
[2022-03-23] MEDS: ESCITALOPRAM OXALATE 10 MG TAB (LEXAPRO) PO SCH ×2 (17:06→17:11)
[2022-03-23] MEDS: SENNA 8.6 MG TAB (SENOKOT) PO SCH (20:25)
[2022-03-23] MEDS: traZODone 100 MG TAB PO SCH (20:26)
[2022-03-23] MEDS: ASPIRIN 81MG ENTERIC TABLET PO SCH (20:26)
[2022-03-23] MEDS: ATORVASTATIN 20 MG TAB PO SCH (20:26)
[2022-03-23] MEDS: LATANOPROST 0.005% OPHTH SOLN 2.5 ML OU SCH (20:27)
[2022-03-23] MEDS: CHLORHEXIDINE GLUCONATE 0.12 % 15ML UDC (PERIDEX ORAL RINSE) SSP SCH (22:00)
[2022-03-23] MEDS ORDERED: oxyCODONE 5MG TAB PO PRN (22:50)
[2022-03-24] MEDS: UNRESOLVED PATIENT OWN MED ORDER XX SCH (00:01)
[2022-03-24] MEDS: oxyCODONE 5MG TAB PO PRN ×4 (03:33→22:55)
[2022-03-24 06:00] VITALS: BP 118/82
[2022-03-24 07:33] LABS: HEMATOCRIT 25.2 % (36.0-47.0); HEMOGLOBIN 7.7 g/dl (12.0-15.5); MEAN CORPUSCULAR HEMOGLOBIN 29.8 pg (27.0-33.0); MEAN CORPUSCULAR HGB CONC 30.6 g/dl (32.0-36.5); MEAN CORPUSCULAR VOLUME 97.7 fl (80.0-96.0); PLATELET COUNT, AUTOMATED 180 10^3/uL (150-450); RED BLOOD COUNT 2.58 10^6/uL (4.00-5.40); WHITE BLOOD COUNT 6.2 10^3/uL (4.0-10.0)
[2022-03-24 07:56] LABS: ALBUMIN 1.6 GM/DL (3.2-5.2); ALT/SGPT 27 U/L (12-78); BILIRUBIN,TOTAL 0.3 MG/DL (0.2-1.0); BLOOD UREA NITROGEN 15 MG/DL (7-18); CALCIUM LEVEL 8.3 MG/DL (8.8-10.2); CARBON DIOXIDE LEVEL 28 MEQ/L (21-32); CHLORIDE LEVEL 113 MEQ/L (98-107); CREATININE FOR GFR 0.46 MG/DL (0.55-1.30); GLOMERULAR FILTRATION RATE > 60.0 (>39); GLUCOSE, FASTING 105 MG/DL (70-100); POTASSIUM SERUM 4.1 MEQ/L (3.5-5.1); SODIUM LEVEL 145 MEQ/L (136-145); TOTAL PROTEIN 4.4 GM/DL (6.4-8.2)
[2022-03-24 08:30] VITALS: BP_SYST 121; BP_DIAS 82; BP_DIAS 84
[2022-03-24] MEDS: DOCUSATE SODIUM 100MG CAPSULE PO SCH ×3 (09:02→21:00)
[2022-03-24] MEDS: HYDROXYCHLOROQUINE 200 MG TAB PO SCH (09:02)
[2022-03-24] MEDS: CHLORHEXIDINE GLUCONATE 0.12 % 15ML UDC (PERIDEX ORAL RINSE) SSP SCH ×3 (09:02→21:00)
[2022-03-24] MEDS: lamoTRIgine 100MG TAB PO SCH ×2 (09:03→20:40)
[2022-03-24] MEDS: PANTOPRAZOLE 40MG TAB (PROTONIX) PO SCH (09:04)
[2022-03-24] MEDS: FERROUS SULFATE 325MG TAB PO SCH (09:04)
[2022-03-24] MEDS: APIXABAN 5 MG TAB (ELIQUIS) PO SCH ×2 (09:05→20:39)
[2022-03-24] MEDS: ACETAMINOPHEN 500 MG TAB PO SCH ×4 (09:05→20:38)
[2022-03-24] MEDS: LABETALOL 200 MG TAB PO SCH (10:02)
[2022-03-24] MEDS: MEMANTINE 5MG TABLET (NAMENDA) PO SCH ×2 (10:04→20:40)
[2022-03-24] MEDS: cefTRIAXone SOD 1 GM in D5W MINI-BAG PLUS 50 ML IV SCH (12:30)
[2022-03-24] MEDS: LEFLUNOMIDE 20MG TABLET (PATIENT'S OWN MED) PO SCH (13:48)
[2022-03-24] MEDS: ESCITALOPRAM OXALATE 10 MG TAB (LEXAPRO) PO SCH (17:53)
[2022-03-24] MEDS: IRON SUCROSE 200 MG in NS 100 ML IV SCH (17:54)
[2022-03-24] MEDS: ATORVASTATIN 20 MG TAB PO SCH (20:37)
[2022-03-24] MEDS: SENNA 8.6 MG TAB (SENOKOT) PO SCH (20:39)
[2022-03-24] MEDS: traZODone 100 MG TAB PO SCH (20:40)
[2022-03-24] MEDS: LATANOPROST 0.005% OPHTH SOLN 2.5 ML OU SCH (20:40)
[2022-03-24] MEDS: ASPIRIN 81MG ENTERIC TABLET PO SCH (20:40)
[2022-03-25] MEDS: UNRESOLVED PATIENT OWN MED ORDER XX SCH (00:01)
[2022-03-25 06:00] VITALS: BP 140/85
[2022-03-25 06:46] LABS: HEMATOCRIT 25.7 % (36.0-47.0); HEMOGLOBIN 7.8 g/dl (12.0-15.5); MEAN CORPUSCULAR HEMOGLOBIN 29.4 pg (27.0-33.0); MEAN CORPUSCULAR HGB CONC 30.4 g/dl (32.0-36.5); PLATELET COUNT, AUTOMATED 185 10^3/uL (150-450); RED BLOOD COUNT 2.65 10^6/uL (4.00-5.40); WHITE BLOOD COUNT 6.8 10^3/uL (4.0-10.0)
[2022-03-25 07:10] LABS: ALBUMIN 1.6 GM/DL (3.2-5.2); ALT/SGPT 53 U/L (12-78); BILIRUBIN,TOTAL 0.4 MG/DL (0.2-1.0); BLOOD UREA NITROGEN 12 MG/DL (7-18); CALCIUM LEVEL 8.6 MG/DL (8.8-10.2); CARBON DIOXIDE LEVEL 26 MEQ/L (21-32); CHLORIDE LEVEL 110 MEQ/L (98-107); CREATININE FOR GFR 0.52 MG/DL (0.55-1.30); GLOMERULAR FILTRATION RATE > 60.0 (>39); GLUCOSE, FASTING 87 MG/DL (70-100); SODIUM LEVEL 143 MEQ/L (136-145); TOTAL PROTEIN 4.5 GM/DL (6.4-8.2)
[2022-03-25] MEDS: CHLORHEXIDINE GLUCONATE 0.12 % 15ML UDC (PERIDEX ORAL RINSE) SSP SCH (09:09)
[2022-03-25] MEDS: DOCUSATE SODIUM 100MG CAPSULE PO SCH (09:11)
[2022-03-25] MEDS: LEFLUNOMIDE 20MG TABLET (PATIENT'S OWN MED) PO SCH (09:11)
[2022-03-25] MEDS: HYDROXYCHLOROQUINE 200 MG TAB PO SCH (09:11)
[2022-03-25] MEDS: PANTOPRAZOLE 40MG TAB (PROTONIX) PO SCH (09:12)
[2022-03-25] MEDS: ACETAMINOPHEN 500 MG TAB PO SCH ×2 (09:12→11:43)
[2022-03-25] MEDS: APIXABAN 5 MG TAB (ELIQUIS) PO SCH (09:12)
[2022-03-25] MEDS: MEMANTINE 5MG TABLET (NAMENDA) PO SCH (09:15)
[2022-03-25] MEDS: lamoTRIgine 100MG TAB PO SCH (09:16)
[2022-03-25 09:18] VITALS: BP 141/89
[2022-03-25] MEDS: LABETALOL 200 MG TAB PO SCH (09:19)
[2022-03-25] MEDS: cefTRIAXone SOD 1 GM in D5W MINI-BAG PLUS 50 ML IV SCH (10:38)
[2022-03-25] MEDS: oxyCODONE 5MG TAB PO PRN (11:43)
[2022-03-25 13:57] VITALS: BP 85/55
[2022-03-25] MEDS ORDERED: LR 1,000 ML IV SCH (14:25)
[2022-03-25] MEDS ORDERED: SCOPOLAMINE 1MG TRANSDERMAL PATCH TOP PRN (16:40)
[2022-03-25] MEDS ORDERED: ATROPINE SULFATE 1% OP SOLN 2 ML BTL SL PRN (16:40)
[2022-03-25] MEDS: SENNA 8.6 MG TAB (SENOKOT) PO SCH (21:00)
[2022-03-25] MEDS: MORPHINE 2 MG/ML 1ML VIAL IV PRN ×2 (21:05→23:57)
[2022-03-26] MEDS: MORPHINE 2 MG/ML 1ML VIAL IV PRN ×2 (04:26→07:39)
[2022-03-26] MEDS: LORazepam 2 MG/ML VIAL IV PRN ×2 (05:54→08:41)
[2022-03-26] MEDS ORDERED: LORazepam 2 MG/ML VIAL As Ordered ONE (08:38)
[2022-03-26] MEDS: MORPHINE 4 MG/ML 1ML VIAL/SYRINGE IV PRN ×5 (10:25→18:02)
[2022-03-26] MEDS: LORazepam 1 MG TAB PO PRN (11:41)
[2022-03-26] MEDS: SENNA 8.6 MG TAB (SENOKOT) PO SCH (19:55)
[2022-03-26] MEDS: MORPHINE 10MG/0.5ML ORAL CONCENTRATE SOLUTION U/D SL PRN (20:27)
[2022-03-27] MEDS: MORPHINE 10MG/0.5ML ORAL CONCENTRATE SOLUTION U/D SL PRN ×15 (02:59→23:11)
[2022-03-27] MEDS: LORazepam 1 MG TAB PO PRN ×14 (04:00→23:11)
[2022-03-27] MEDS: SENNA 8.6 MG TAB (SENOKOT) PO SCH (21:00)
[2022-03-28] MEDS: LORazepam 1 MG TAB PO PRN ×13 (01:49→22:58)
[2022-03-28] MEDS: MORPHINE 10MG/0.5ML ORAL CONCENTRATE SOLUTION U/D SL PRN ×14 (01:50→22:59)
[2022-03-28] MEDS: SENNA 8.6 MG TAB (SENOKOT) PO SCH (21:00)
[2022-03-29] MEDS: LORazepam 1 MG TAB PO PRN ×7 (00:12→12:37)
[2022-03-29] MEDS: MORPHINE 10MG/0.5ML ORAL CONCENTRATE SOLUTION U/D SL PRN ×6 (00:12→09:00)
[2022-03-29] MEDS ORDERED: MORPHINE SULF IN 0.9% NACL 100 MG in IV 1 EA IV SCH ×2 (10:00)
[2022-03-29] MEDS ORDERED: EPIDURAL/PCA KEYS XX PRN (10:00)
== END 2022-03-29 14:55 | disposition expired | DRG 535 ==
LOC: M ED 14:46 → M ED INP 22:25 → M PCU 03-21 16:57 → M MS5PR 03-22 14:27
PROVIDERS: ADMIT Family Medicine; ATTEND Student in an Organized Health Care Education/Training Program
DX: S72.001A Fracture of unspecified part of neck of right femur, initial encounter for closed fracture (principal); J96.01 Acute respiratory failure with hypoxia; G93.41 Metabolic encephalopathy; E43 Unspecified severe protein-calorie malnutrition; D68.2 Hereditary deficiency of other clotting factors; G40.209 Localization-related (focal) (partial) symptomatic epilepsy and epileptic syndromes with complex partial seizures, not intractable, without status epilepticus; E87.0 Hyperosmolality and hypernatremia; Z68.1 Body mass index [BMI] 19.9 or less, adult; R64 Cachexia; N39.0 Urinary tract infection, site not specified; I70.262 Atherosclerosis of native arteries of extremities with gangrene, left leg; D62 Acute posthemorrhagic anemia; Z51.5 Encounter for palliative care; Z66 Do not resuscitate; F03.90 Unspecified dementia, unspecified severity, without behavioral disturbance, psychotic disturbance, mood disturbance, and anxiety; K21.9 Gastro-esophageal reflux disease without esophagitis; F32.A Depression, unspecified; E78.5 Hyperlipidemia, unspecified; I16.0 Hypertensive urgency; M06.9 Rheumatoid arthritis, unspecified; G47.00 Insomnia, unspecified; R62.7 Adult failure to thrive; R13.10 Dysphagia, unspecified; I69.398 Other sequelae of cerebral infarction; I70.201 Unspecified atherosclerosis of native arteries of extremities, right leg; G93.89 Other specified disorders of brain; Z98.49 Cataract extraction status, unspecified eye; Z87.81 Personal history of (healed) traumatic fracture; Z87.891 Personal history of nicotine dependence; D50.9 Iron deficiency anemia, unspecified; Z79.01 Long term (current) use of anticoagulants; Z79.82 Long term (current) use of aspirin; Z79.899 Other long term (current) drug therapy; Y92.018 Other place in single-family (private) house as the place of occurrence of the external cause; Z88.1 Allergy status to other antibiotic agents; W07.XXXA Fall from chair, initial encounter; Y93.89 Activity, other specified; Y99.8 Other external cause status